=== PATIENT | female | born 1985 | race Caucasian/White ===

== ENCOUNTER 2020-06-24 12:20 | Inpatient (IN) | payer OTHER ==
[~2020-06-24] VITALS: Ht 157.5 cm; Wt 82.1 kg
[~2020-06-24 12:20] MED LIST: LIDOCAINE/PF 2% 5 ML VIAL IM ONE; MORPHINE SULFATE/PF 0.5 MG/ML 10 ML AMP IVP ONE
[2020-06-24] MEDS ORDERED: PREN-154 PO (13:02)
[2020-06-24 13:06] VITALS: BP 113/77
[2020-06-24] MEDS ORDERED: AMPICILLIN SODIUM 2 GM/NS 100 ML IV ONE (13:30)
[2020-06-24] MEDS ORDERED: BETAMETHASONE SOLUSPAN 6 MG/ML 5 ML VIAL IM ONE (13:30)
[2020-06-24] MEDS: RINGERS SOLUTION,LACTATED 1,000 ML IV SCH ×2 (13:37→18:21)
[2020-06-24] MEDS ORDERED: METHYLERGONOVINE MALEATE 0.2 MG/ML VIAL IM PRN (13:45)
[2020-06-24] MEDS ORDERED: FentaNYL CITRATE PF 100 MCG/2 ML VIAL IVP PRN ×3 (13:45→22:15)
[2020-06-24] MEDS ORDERED: OXYTOCIN 30 UNITS/LACT RINGERS 500 ML IV ONE (13:45)
[2020-06-24] MEDS ORDERED: METOCLOPRAMIDE HCL 5 MG/ML 2 ML VIAL IVP PRN (13:45)
[2020-06-24] MEDS ORDERED: RINGERS SOLUTION,LACTATED 1,000 ML IV SCH (13:45)
[2020-06-24] MEDS ORDERED: LIDOCAINE/PF 1% 30 ML VIAL SQ PRN (13:45)
[2020-06-24] MEDS ORDERED: CITRIC ACID/SODIUM CITRATE 30 ML SOLUTION UDCUP PO PRN (13:45)
[2020-06-24] MEDS ORDERED: RINGERS SOLUTION,LACTATED 1,000 ML IV PRN (13:45)
[2020-06-24 15:02] LABS: BASOPHILS % (AUTO) 0.4 % (0.0-2.0); EOSINOPHILS % (AUTO) 0.4 % (1.0-6.0); HEMATOCRIT 35.9 % (36-46); LYMPHOCYTES # (AUTO) 2.1 K/uL (1.0-4.8); LYMPHOCYTES % (AUTO) 19.9 % (22.0-44.0); MEAN CORPUSCULAR HEMOGLOBIN 30.7 pg (26.0-34.0); MEAN CORPUSCULAR HGB CONC 33.4 G/dL (31.0-37.0); MEAN CORPUSCULAR VOLUME 92 fL (80-100); MONOCYTES # (AUTO) 0.6 K/uL (0.1-1.0); NEUTROPHILS # (AUTO) 7.6 K/uL (1.8-7.7); NEUTROPHILS % (AUTO) 73.3 % (40.0-70.0); PLATELET COUNT (AUTO)-OB 219 K/uL (150-450); RED CELL DISTRIBUTION WIDTH 14.3 % (11.5-14.5)
[2020-06-24] MEDS ORDERED: ROPIVACAINE HCL/PF 0.2% 100 ML ED ONE (17:34)
[2020-06-24] MEDS ORDERED: ONDANSETRON HCL 4 MG/2 ML VIAL IVP PRN ×2 (17:45→22:15)
[2020-06-24] MEDS ORDERED: DiphenhydrAMINE HCL 50 MG/ML VIAL IVP PRN ×2 (17:45→22:15)
[2020-06-24] MEDS ORDERED: ROPIVACAINE HCL/PF 0.2% 100 ML ED PRN (17:45)
[2020-06-24] MEDS ORDERED: NALBUPHINE HCL 10 MG/ML VIAL IVP PRN ×3 (17:45→22:15)
[2020-06-24] MEDS ORDERED: AMPICILLIN SODIUM 1 GM/NS 50 ML IV SCH (18:00)
[2020-06-24] MEDS ORDERED: OXYGEN THERAPY IH SCH (20:00)
[2020-06-24] MEDS ORDERED: SODIUM CHLORIDE 0.9% 1,000 ML ONE (20:54)
[2020-06-24] MEDS ORDERED: LIDOCAINE/PF 2% 5 ML VIAL ONE (20:54)
[2020-06-24] MEDS ORDERED: GUM MASTIC/STORAX/MSAL/ALCOHOL LIQUID 0.67 ML VIAL TP ONE (21:43)
[2020-06-24] MEDS ORDERED: HYDROmorphone 2 MG/ML VIAL IVP PRN (22:00)
[2020-06-24] MEDS ORDERED: MEPERIDINE-PF 25 MG/ML VIAL IVP PRN (22:00)
[2020-06-24] MEDS ORDERED: MORPHINE SULFATE 10 MG/ML SYRINGE IVP PRN (22:15)
[2020-06-24] MEDS ORDERED: NALOXONE HCL 0.4 MG/ML VIAL IVP PRN (22:15)
[2020-06-24] MEDS ORDERED: DEXTROSE 5%-0.45% SODIUM CHL 1,000 ML IV SCH (22:30)
[2020-06-24] MEDS ORDERED: OxyCODONE HCL/ACETAMINOPHEN 5-325 MG TABLET PO PRN ×2 (22:30)
[2020-06-24] MEDS ORDERED: GLYCERIN/WITCH HAZEL LEAF 40 PADS JAR TP PRN (22:30)
[2020-06-25] MEDS: RINGERS SOLUTION,LACTATED 1,000 ML IV SCH (00:22)
[2020-06-25] MEDS: ACETAMINOPHEN 1000 MG/ISO-OSM 100 ML IV SCH ×2 (00:59→08:35)
[2020-06-25] MEDS: OXYTOCIN 20 UNITS/LACT RINGERS 1,000 ML IV SCH ×2 (01:22→08:34)
[2020-06-25] MEDS: KETOROLAC TROMETHAMINE 30 MG/ML VIAL IVP SCH ×2 (04:13→09:56)
[2020-06-25 06:48] LABS: BASOPHILS % (AUTO) 0.1 % (0.0-2.0); EOSINOPHILS % (AUTO) 0 % (1.0-6.0); HEMATOCRIT 30.5 % (36-46); HEMOGLOBIN 10.2 g/dL (12.0-16.0); LYMPHOCYTES # (AUTO) 1.6 K/uL (1.0-4.8); LYMPHOCYTES % (AUTO) 13.7 % (22.0-44.0); MEAN CORPUSCULAR HEMOGLOBIN 30.7 pg (26.0-34.0); MEAN CORPUSCULAR HGB CONC 33.5 G/dL (31.0-37.0); MEAN CORPUSCULAR VOLUME 92 fL (80-100); MONOCYTES # (AUTO) 0.8 K/uL (0.1-1.0); MONOCYTES % (AUTO) 6.4 % (2.0-9.0); NEUTROPHILS # (AUTO) 9.5 K/uL (1.8-7.7); NEUTROPHILS % (AUTO) 79.8 % (40.0-70.0); PLATELET COUNT (AUTO)-OB 208 K/uL (150-450); RED BLOOD CELL COUNT(AUTO) 3.33 MIL/uL (4.00-5.20); RED CELL DISTRIBUTION WIDTH 14.5 % (11.5-14.5)
[2020-06-25] MEDS: OXYGEN THERAPY IH SCH ×2 (08:00→20:00)
[2020-06-25] MEDS ORDERED: OXYGEN THERAPY IH SCH ×2 (08:00)
[2020-06-25] MEDS: MAGNESIUM HYDROXIDE SUSPENSION 30 ML UDCUP PO SCH ×2 (08:35→22:22)
[2020-06-25] MEDS: IBUPROFEN 600 MG TABLET PO PRN (22:22)
[2020-06-26] MEDS ORDERED: LANOLIN 7 GM OINTMENT TP ONE (09:00)
[2020-06-26] MEDS: MAGNESIUM HYDROXIDE SUSPENSION 30 ML UDCUP PO SCH ×2 (09:33→23:46)
[2020-06-26] MEDS: IBUPROFEN 600 MG TABLET PO PRN (23:46)
[2020-06-27] MEDS: IBUPROFEN 600 MG TABLET PO PRN (06:41)
[2020-06-27] MEDS: MAGNESIUM HYDROXIDE SUSPENSION 30 ML UDCUP PO SCH (08:39)
[2020-06-27] MEDS ORDERED: IBUP-2071 PO (10:44)
[2020-06-27] MEDS ORDERED: FERR-89 PO (10:45)
[2020-06-27] MEDS ORDERED: DOCU-275 PO (10:45)
[2020-06-27] MEDS ORDERED: PERCT PO (10:46)
== END 2020-06-27 12:45 | disposition home or self-care (01) | DRG 786 ==
LOC: 4S 12:20 → OBSVTOIN 12:20
PROVIDERS: ADMIT Obstetrics & Gynecology; ATTEND Obstetrics & Gynecology
PROC: 10D00Z1 Extraction of Products of Conception, Low, Open Approach (ICD-10-PCS; principal; 2020-06-24)
DX: O62.2 Other uterine inertia (principal); O60.14X0 Preterm labor third trimester with preterm delivery third trimester, not applicable or unspecified; Z3A.36 36 weeks gestation of pregnancy; Z37.0 Single live birth; O76 Abnormality in fetal heart rate and rhythm complicating labor and delivery
CPT/HCPCS: 76811; 85025; 86592; 86850; 86900; 86901; 87340; 87491; 87591; A9575; J0131; J0290; J0690; J0702; J1200; J1885; J2274; J2405; J2590; J2795; J3490; J7030; J7120